=== PATIENT | male | born 1975 | race Caucasian/White ===

== ENCOUNTER → 2017-11-25 | Outpatient (CLI) | payer OTHER ==
[~2017-11-25] MED LIST: ATV5 PO; IBUP600T44 PO; MULT-506 PO; PRCUNK PO; PRLSR20 PO
--- NOTE | 2017-11-25 18:17 | DIAGNOSTIC IMAGING REPORT ---
C-SPINE ROUTINE 4 OR 5 VIEWS CLINICAL HISTORY: Cervicalgia. COMPARISON STUDY: No previous studies for comparison. FINDINGS: Reversal of the normal cervical lordosis is noted. C7 is visualized on the swimmer's projection. No acute fracture or suspicious lesion is noted. There is mild disc space narrowing and osteophytosis at C5-C6 and C6-C7. There is mild multilevel facet arthrosis. Prevertebral soft tissues are unremarkable. IMPRESSION: 1. No cervical spine fracture. 2. Mild multilevel degenerative disc disease and facet arthrosis within the cervical spine. 3. Reversal of the normal cervical lordosis. Electronically signed by: Stephen Park M.D. 11/25/2017 6:15 PM Dictated Date/Time: 11/25/2017 6:14 PM
== END | disposition home or self-care (01) ==
LOC: C.RAD 17:27
PROVIDERS: ATTEND Psychiatry & Neurology Neurology
DX: M54.2 Cervicalgia (principal)